=== PATIENT | male | born 1975 | race Two or more races ===

== ENCOUNTER → 2024-08-06 | Outpatient (CLI) | payer OTHER, SELFPAY ==
[2024-08-06 17:04] LABS: HIV (1&2) Antibody Rapid Non-Reactive
[2024-08-06 17:49] LABS: Hepatitis B Surface Ab Reactive (Immune) (Immune); Hepatitis B Surface Antigen Non Reactive (Non React)
[2024-08-10 03:06] LABS: HCV RNA, PCR <15 NOT DETECTED IU/mL
[2024-08-12 06:49] LABS: HCV RNA, PCR Log IU <1.18 NOT DETECTED Log IU/mL
== END | disposition home or self-care (01) ==
LOC: COPL 15:31
PROVIDERS: PCP Family Medicine; Referring Provider Family Medicine; Visit Provider Nurse Practitioner Family
DX: Z77.21 Contact with and (suspected) exposure to potentially hazardous body fluids (principal)
CPT/HCPCS: 36415; 86703; 86706; 87340; 87522

== ENCOUNTER → 2024-09-27 | Outpatient (CLI) | payer OTHER, SELFPAY ==
[2024-09-27 16:36] LABS: Hepatitis C Antibody Non Reactive (Non React)
[2024-10-02 17:52] LABS: HCV RNA, PCR <15 NOT DETECTED IU/mL
[2024-10-03 06:57] LABS: HCV RNA, PCR Log IU <1.18 NOT DETECTED Log IU/mL; HIV Ag/Ab, 4th Gen NON-REACTIVE
== END | disposition home or self-care (01) ==
LOC: COPL 14:13
PROVIDERS: PCP Family Medicine; Referring Provider Physician Assistant; Visit Provider Physician Assistant
DX: Z77.21 Contact with and (suspected) exposure to potentially hazardous body fluids (principal)
CPT/HCPCS: 36415; 86803; 87389; 87522